=== PATIENT | female | born 2000 | race African-American/Black ===

== ENCOUNTER 2022-04-22 12:54 | Emergency (ER) | payer BC, OTHER ==
[2022-04-22] MEDS ORDERED: Acetaminophen 500 MG TAB ONE (13:59)
[2022-04-22 14:32] LABS: #Eosinphils 0.2 10x3/uL (0.0-0.5); #Monocytes 0.8 10x3/uL (0.0-1.1); #Neutrophils 6.7 10x3/uL (1.5-8.4); %Basophils 0.4 % (0.0-2.0); %Eosinophils 1.6 % (0.0-6.0); %Lymphocytes 26.9 % (18.0-47.0); %Monocytes 7.8 % (0.0-10.0); %Neutrophils 62.9 % (40.0-75.0); Hemoglobin 11.4 g/dL (12.0-15.5); Mean Corpuscular HGB CONC 34.4 g/dL (32.0-36.0); Mean Corpuscular Hemoglobin 29.3 pg (27.0-33.0); Mean Corpuscular Volume 85.1 fl (81.6-98.3); Mean Platelet Volume 8.9 fl (7.4-10.4); Platelet Count 371 10x3/uL (150-450); RBC Distribution Width 14.2 % (11.5-14.5); Red Blood Cell (RBC) Count 3.89 10x6/uL (3.90-5.03); White Blood Cell (WBC) Count 10.6 10x3/uL (3.5-10.5)
[2022-04-22 14:40] LABS: ALT (SGPT) 15 U/L (8-55); AST (SGOT) 19 U/L (5-34); Alkaline Phosphatase 54 U/L (40-110); Anion Gap 10 mmol/L (10-20); BUN (Urea Nitrogen) 6 mg/dL (7.0-18.7); Bilirubin, Total 0.3 mg/dL (0.2-1.2); Calc. Creatinine Clearance 0 mL/min (70-130); Calcium 9.6 mg/dL (7.8-10.44); Carbon Dioxide 24 mmol/L (22-29); Chloride 105 mmol/L (98-107); Estimated GFR 127; Globulin 3.3 g/dL (2.4-3.5); Glucose 83 mg/dL (70-105); Potassium 3.2 mmol/L (3.5-5.1); Protein, Total 7.3 g/dL (6.0-8.3); Sodium 136 mmol/L (136-145)
[2022-04-22] MEDS ORDERED: HYDROcodone/Acetaminophen 5/325 mg Tablet ONE (14:44)
[2022-04-22 15:03] LABS: Pregnancy Test - Urine (BHCG) POSITIVE (Negative)
[2022-04-22 15:04] LABS: Bilirubin Neg (Negative); Blood, Urine 25 (Negative); Clarity Cloudy (Clear); Glucose, Urine (Dipstick) Normal (Negative); Ketone, Urine Negative (Negative); Leukocyte 500 (Negative); Nitrite Negative (Negative); Pregu Control Background? CLEAR/WHITE (CLR/WHITE); Pregu Control Bar Appear? YES (CONTROL BAR); Protein, Urine (Dipstick) 30 mg/dl (Neg-Trace); Specific Gravity 1.015 (1.002-1.036); Specific Gravity, Urine 1.015 (1.002-1.036)
[2022-04-22 15:11] LABS: WBC/HPF 21-50 HPF (0-3)
[2022-04-22 15:12] LABS: Bacteria/HPF 3+ HPF (None Seen); Mucous/LPF 2+ LPF (<2+)
[2022-04-22] MEDS ORDERED: Lidocaine 1% PF 5 ML VIAL ONE (15:50)
[2022-04-22] MEDS ORDERED: Bacitracin 1 PK ONE (17:02)
[2022-04-22] MEDS ORDERED: Boostrix 0.5 ML (Tdap) VIAL ONE (17:17)
== END 2022-04-22 17:33 | disposition home or self-care (01) ==
LOC: CSHERS 12:54
DX: O9A.211 Injury, poisoning and certain other consequences of external causes complicating pregnancy, first trimester (principal); S91.312A Laceration without foreign body, left foot, initial encounter; S91.311A Laceration without foreign body, right foot, initial encounter; Z3A.01 Less than 8 weeks gestation of pregnancy
CPT/HCPCS: 12002; 36415; 80053; 81003; 81015; 81025; 85025; 90471; 90715

== ENCOUNTER 2022-08-02 23:26 | Emergency (ER) | payer OTHER ==
[2022-08-03 01:29] LABS: Bilirubin Neg (Negative); Blood, Urine Negative (Negative); Clarity Clear (Clear); Glucose, Urine (Dipstick) Normal (Negative); Ketone, Urine 5 mg/dL (Negative); Leukocyte Negative (Negative); Nitrite Negative (Negative); Protein, Urine (Dipstick) Negative (Neg-Trace); Specific Gravity, Urine 1.005 (1.005-1.030); Urobilinogen Normal mg/dL (Less than 2)
[2022-08-03] MEDS ORDERED: Acetaminophen 500 MG TAB ONE (01:33)
[2022-08-03 01:41] LABS: #Eosinphils 0.2 10x3/uL (0.0-0.5); #Monocytes 1.1 10x3/uL (0.0-1.1); #Neutrophils 7.3 10x3/uL (1.5-8.4); %Basophils 0.3 % (0.0-2.0); %Eosinophils 1.8 % (0.0-6.0); %Lymphocytes 25.7 % (18.0-47.0); %Monocytes 9.4 % (0.0-10.0); %Neutrophils 62.1 % (40.0-75.0); Hemoglobin 10.6 g/dL (12.0-15.5); Mean Corpuscular HGB CONC 34.3 g/dL (32.0-36.0); Mean Corpuscular Hemoglobin 29.5 pg (27.0-33.0); Mean Corpuscular Volume 86.1 fl (81.6-98.3); Platelet Count 401 10x3/uL (150-450); RBC Distribution Width 13.1 % (11.5-14.5); Red Blood Cell (RBC) Count 3.59 10x6/uL (3.90-5.03); White Blood Cell (WBC) Count 11.7 10x3/uL (3.5-10.5)
[2022-08-03 01:58] LABS: ALT (SGPT) 12 U/L (8-55); AST (SGOT) 17 U/L (5-34); Albumin 3.6 g/dL (3.5-5.0); Alkaline Phosphatase 81 U/L (40-110); Anion Gap 12 mmol/L (10-20); BUN (Urea Nitrogen) 7 mg/dL (7.0-18.7); Bilirubin, Total 0.3 mg/dL (0.2-1.2); Calc. Creatinine Clearance 0 mL/min (70-130); Calcium 9.3 mg/dL (7.8-10.44); Carbon Dioxide 22 mmol/L (22-29); Chloride 104 mmol/L (98-107); Estimated GFR 132; Globulin 3.5 g/dL (2.4-3.5); Glucose 87 mg/dL (70-105); Potassium 3.3 mmol/L (3.5-5.1); Protein, Total 7.1 g/dL (6.0-8.3); Sodium 135 mmol/L (136-145)
== END 2022-08-03 02:25 | disposition home or self-care (01) ==
LOC: CSHERS 23:26
DX: O99.891 Other specified diseases and conditions complicating pregnancy (principal); R55 Syncope and collapse; O9A.212 Injury, poisoning and certain other consequences of external causes complicating pregnancy, second trimester; S93.501A Unspecified sprain of right great toe, initial encounter; Z3A.22 22 weeks gestation of pregnancy; X58.XXXA Exposure to other specified factors, initial encounter
CPT/HCPCS: 36415; 80053; 81003; 84484; 85025; 93005

== ENCOUNTER 2022-11-25 11:44 | Inpatient (IN) | payer OTHER ==
[2022-11-25] MEDS ORDERED: hydrALAZINE 20 MG/ML VIAL SLOW IVP PRN ×2 (12:05→18:11)
[2022-11-25 12:11] VITALS: BMI 26.0
[2022-11-25] MEDS: Lactated Ringer's 1,000 ML IV SCH ×3 (12:50→18:43)
[2022-11-25 12:52] LABS: Bilirubin Neg (Negative); Blood, Urine Negative (Negative); Glucose, Urine (Dipstick) Normal (Negative); Ketone, Urine 150 mg/dL (Negative); Leukocyte 500 (Negative); Nitrite Negative (Negative); Protein, Urine (Dipstick) 15 mg/dl (Neg-Trace); Urobilinogen Normal mg/dL (Less than 2); pH, Urine 6.5 (5.0-9.0)
[2022-11-25 12:53] LABS: Clarity Hazy (Clear)
[2022-11-25] MEDS ORDERED: Acetaminophen 500 MG TAB PO SCH (13:00)
[2022-11-25 13:01] LABS: #Eosinphils 0.2 10x3/uL (0.0-0.5); #Monocytes 1.1 10x3/uL (0.0-1.1); %Basophils 0.3 % (0.0-2.0); %Lymphocytes 17.8 % (18.0-47.0); %Monocytes 10.4 % (0.0-10.0); %Neutrophils 68.7 % (40.0-75.0); Hemoglobin 10.3 g/dL (12.0-15.5); Mean Corpuscular HGB CONC 33.8 g/dL (32.0-36.0); Mean Corpuscular Hemoglobin 29.3 pg (27.0-33.0); Mean Corpuscular Volume 86.6 fl (81.6-98.3); Mean Platelet Volume 9.4 fl (7.4-10.4); Platelet Count 280 10x3/uL (150-450); RBC Distribution Width 15.3 % (11.5-14.5); Red Blood Cell (RBC) Count 3.52 10x6/uL (3.90-5.03); White Blood Cell (WBC) Count 10.2 10x3/uL (3.5-10.5)
[2022-11-25 13:02] LABS: Amphetamine Detected (NotDetected); Barbiturates Screen Not Detected (NotDetected); Benzodiazepine Screen Not Detected (NotDetected); Cocaine Metabolite Screen Not Detected (NotDetected); Methadone Not Detected (NotDetected); Methamphetamine Detected (NotDetected); Opiate Screen Not Detected (NotDetected); Oxycodone Screen Not Detected (NotDetected); Phencyclidine (PCP) Not Detected (NotDetected); THC/Cannabinoid Screen Not Detected (NotDetected); Tricyclic Screen Not Detected (NotDetected)
[2022-11-25 13:08] LABS: Squamous Epithelial 0-3 HPF (0-3)
[2022-11-25 13:09] LABS: Bacteria/HPF Rare-Few HPF (None Seen); Mucous/LPF 1+ LPF (<2+); RBC/HPF None Seen HPF (0-3); WBC/HPF 0-3 HPF (0-3)
[2022-11-25 13:18] LABS: ALT (SGPT) 11 U/L (8-55); AST (SGOT) 16 U/L (5-34); Albumin 3.4 g/dL (3.5-5.0); Alkaline Phosphatase 196 U/L (40-110); Anion Gap 13 mmol/L (10-20); BUN (Urea Nitrogen) 5 mg/dL (7.0-18.7); Bilirubin, Total 0.4 mg/dL (0.2-1.2); Calc. Creatinine Clearance 150 mL/min (70-130); Calcium 8.4 mg/dL (7.8-10.44); Carbon Dioxide 19 mmol/L (22-29); Chloride 109 mmol/L (98-107); Estimated GFR 129; Globulin 3.4 g/dL (2.4-3.5); Glucose 81 mg/dL (70-105); Potassium 3.4 mmol/L (3.5-5.1); Protein, Total 6.8 g/dL (6.0-8.3); Sodium 138 mmol/L (136-145)
[2022-11-25] MEDS ORDERED: Ondansetron PF 4 MG/2 ML Vial IVP PRN ×3 (13:30→18:11)
[2022-11-25] MEDS ORDERED: NS w/ Oxytocin 30 units 500 ML IV SCH ×3 (13:30→18:11)
[2022-11-25] MEDS ORDERED: Misoprostol 200 MCG TAB PR PRN (13:30)
[2022-11-25] MEDS ORDERED: Lidocaine 1% (PF) 30 ML VIAL SC PRN (13:30)
[2022-11-25] MEDS ORDERED: Promethazine HCl 25 MG/ML VIAL IM PRN ×2 (13:30→14:43)
[2022-11-25] MEDS ORDERED: Ibuprofen 800 MG TAB PO PRN (13:30)
[2022-11-25] MEDS ORDERED: Penicillin G 2.5 MILL.units 2.5 MILL.UNITS in Premix Bag 1 BAG IVPB SCH (13:30)
[2022-11-25] MEDS ORDERED: Fentanyl 2 mcg/Bup 0.1% Cadd 100 ML ONE (13:36)
[2022-11-25] MEDS ORDERED: Penicillin G Potassium 5 MILL.UNITS VIAL ONE (13:37)
[2022-11-25] MEDS: Penicillin G Potassium 5 MILL.UNITS in Sodium Chloride 0.9% 100 ML IVPB SCH ×2 (13:50→15:15)
[2022-11-25] MEDS ORDERED: diphenhydrAMINE 50 MG/ML VIAL IVP PRN (14:43)
[2022-11-25] MEDS ORDERED: Moisturizing Cream (Eucerin) 113 GM JAR TOP PRN (14:43)
[2022-11-25] MEDS ORDERED: Acetaminophen 325 MG TAB PO PRN (14:43)
[2022-11-25] MEDS ORDERED: Naloxone HCl 0.4 mg/ml Vial IVP PRN ×2 (14:43)
[2022-11-25] MEDS ORDERED: ePHEDrine Sulfate 50 MG/10 ML VIAL SLOW IVP PRN (14:43)
[2022-11-25] MEDS ORDERED: Lactated Ringer's 500 ML IV PRN (14:43)
[2022-11-25] MEDS ORDERED: Communication Order-Pharmacy FS SCH (14:45)
[2022-11-25] MEDS ORDERED: Fentanyl 2 mcg/Bupivacaine 0.1% Cassette 100 ML EPIDURAL SCH (14:45)
[2022-11-25 16:17] LABS: SARS-CoV-2 NAA Rapid Test Not Detected (NotDetected)
[2022-11-25 16:37] LABS: pH (Cord, venous) 7.349 (7.250-7.350)
[2022-11-25 17:52] LABS: Syphilis Antibody Nonreactive (Nonreactive); Syphilis Antibody Index 0.04 S/CO (<1.00 Non-Reactive)
[2022-11-25 17:55] LABS: HBSAg Index 0.13 S/CO (0-0.99); HIV (1/2) Antibody/Antigen Non-Reactive (NonReactive); Hep B Surf Ag Non-Reactive S/CO (NonReactive)
[2022-11-25] MEDS: Ibuprofen 800 MG TAB PO SCH (18:08)
[2022-11-25] MEDS ORDERED: Preparation H Ointment 28 GM TUBE PR PRN (18:11)
[2022-11-25] MEDS ORDERED: Boostrix 0.5 ML (Tdap) VIAL (>/=7 yrs of age) IM ONE (18:11)
[2022-11-25] MEDS ORDERED: Milk Of Magnesia 30 ML UDCUP PO PRN (18:11)
[2022-11-25] MEDS ORDERED: Benzocaine-Menthol 82.5 ML CAN TOP PRN (18:11)
[2022-11-25] MEDS ORDERED: Bisacodyl 10 MG SUPP PR PRN (18:11)
[2022-11-25] MEDS ORDERED: Misoprostol 200 MCG TAB VAG PRN (18:11)
[2022-11-25] MEDS ORDERED: diphenhydrAMINE 25 MG CAP PO PRN (18:11)
[2022-11-25] MEDS ORDERED: Ferrous Sulfate 325 MG TAB PO SCH (18:30)
[2022-11-25] MEDS: Docusate 100 MG CAP PO SCH (20:46)
[2022-11-25] MEDS: HYDROcodone/Acetaminophen 5/325 mg Tablet PO PRN (20:46)
[2022-11-25 23:37] LABS: Hep C IgG Ab Non-Reactive (NonReactive); Hep C Index 0.06 S/CO (0-0.79)
[2022-11-26] MEDS: Ibuprofen 800 MG TAB PO SCH (04:19)
[2022-11-26] MEDS: HYDROcodone/Acetaminophen 5/325 mg Tablet PO PRN (04:19)
[2022-11-26] MEDS ORDERED: Ferrous Sulfate 325 MG TAB PO SCH (08:00)
[2022-11-26] MEDS ORDERED: Prenatal Vitamin 1 TAB PO SCH (09:00)
[2022-11-26 09:15] VITALS: BP 122/82; TEMP 98.8
[2022-11-26] MEDS: Docusate 100 MG CAP PO SCH (10:36)
== END 2022-11-26 13:09 | disposition home or self-care (01) | DRG 806 ==
LOC: CSHLD/OP 11:44 → CSHLD 13:30 → CSHPP 18:34
PROVIDERS: ADMIT Obstetrics & Gynecology; ATTEND Obstetrics & Gynecology
PROC: 10E0XZZ Delivery of Products of Conception, External Approach (ICD-10-PCS; principal; 2022-11-25)
PROC: 10907ZC Drainage of Amniotic Fluid, Therapeutic from Products of Conception, Via Natural or Artificial Opening (ICD-10-PCS; 2022-11-25)
PROC: 4A133R1 Monitoring of Arterial Saturation, Peripheral, Percutaneous Approach (ICD-10-PCS; 2022-11-25)
DX: O98.52 Other viral diseases complicating childbirth (principal); O99.324 Drug use complicating childbirth; Z37.0 Single live birth; O99.892 Other specified diseases and conditions complicating childbirth; O32.8XX0 Maternal care for other malpresentation of fetus, not applicable or unspecified; B00.9 Herpesviral infection, unspecified; Z3A.38 38 weeks gestation of pregnancy; O77.0 Labor and delivery complicated by meconium in amniotic fluid; O71.82 Other specified trauma to perineum and vulva; O69.81X0 Labor and delivery complicated by cord around neck, without compression, not applicable or unspecified; Z20.822 Contact with and (suspected) exposure to COVID-19; R19.7 Diarrhea, unspecified; F15.90 Other stimulant use, unspecified, uncomplicated; O34.523 Maternal care for prolapse of gravid uterus, third trimester
CPT/HCPCS: 36415; 51702; 80053; 80306; 81001; 82805; 85025; 86762; 86780; 86803; 86850; 86900; 86901; 87340; 87389; 99285; J2540; J2590; U0002

== ENCOUNTER 2024-04-14 15:36 | Emergency (ER) | payer BC, OTHER, SELFPAY ==
[2024-04-14] MEDS ORDERED: Ketorolac Tromethamine 30 MG (1 mL) VIAL ONE (16:51)
[2024-04-14] MEDS ORDERED: Sterile Water 10 ML ONE (16:51)
[2024-04-14] MEDS ORDERED: cefTRIAXone (ROCEPHIN) 500 MG VIAL ONE (16:51)
== END 2024-04-14 17:25 | disposition home or self-care (01) ==
LOC: CSHERS 15:36
DX: K08.89 Other specified disorders of teeth and supporting structures (principal)
CPT/HCPCS: 96372; 99282; J0696; J1885